=== PATIENT | female | born 1945 ===

== ENCOUNTER 2018-08-08 09:36 | Emergency (ER) | payer MEDICARE ==
[2018-08-08 09:45] VITALS: BMI 29.2
[2018-08-08] MEDS ORDERED: Sodium Chloride 0.9% 1,000 ML IV STA ×2 (11:06→11:07)
[2018-08-08 12:05] LABS: BASO # 0.1 K/uL (0.0-0.2); BASO % 0.7 % (0.0-2.0); EOS # 0.1 K/uL (0.0-0.7); EOS % 1.5 % (0.0-4.0); HEMOGLOBIN 13.5 g/dL (12.0-16.0); LYMPH # 1.6 K/uL (1.0-4.3); LYMPH % 23.5 % (20.0-40.0); MEAN CELL VOLUME 89.4 fl (81.0-99.0); MEAN CORPUSCULAR HEMOGLOBIN 29.4 pg (27.0-31.0); MEAN CORPUSCULAR HGB CONC 32.9 g/dL (33.0-37.0); MEAN PLATELET VOLUME 8.7 fl (7.2-11.7); MONO # 0.5 K/uL (0.0-0.8); MONO % 6.8 % (0.0-10.0); NEUT # 4.7 K/uL (1.8-7.0); NEUT % 67.5 % (50.0-75.0); NRBC % 0.1 % (0.0-0.0); RBC 4.58 Mil/uL (3.80-5.20); RED CELL DISTRIBUTION WIDTH 14.1 % (11.5-14.5); WHITE BLOOD COUNT 6.9 K/uL (4.8-10.8)
[2018-08-08 12:08] LABS: BLOOD UREA NITROGEN 15 mg/dl (7-17); CALCIUM 9.5 mg/dL (8.4-10.2); GFR NON-AFRICAN AMERICAN > 60
--- NOTE | 2018-08-08 12:20 | ED PDOC ---
History of Present Illness History of Present Illness: Randi Hatch is a 73 year old female with a past medical history of hypertension, emphysema, CAD, and COPD who is presenting to the ED for evaluation of 4 days worsening generalized body aches, and sore throat associated with a mild headache. Patient states that she took over the counter M ucinex with no relief of symptoms. She reports a subjective fever and states that she is complaint with her medications and medical follow-ups. Patient denies any nausea or vomiting or any other medical complaints. PMD: Dr. Panchal HPI: Influenza Time Seen by Provider: 08/08/18 10:58 Chief Complaint: Flu-like Symptoms Chief Complaint (Provider): Flu-like Symptoms History Per: Patient Exam Limitations: no limitations Onset/Duration Of Symptoms: Days Symptoms include: fever, headache, bodyaches, sore throat. denies: vomiting Past Medical History Reviewed: Historical Data, Nursing Documentation, Vital Signs Vital Signs: Last Vital Signs Temp 98.7 F 08/08/18 09:44 Pulse 89 08/08/18 09:44 Resp 20 08/08/18 09:44 BP 142/77 08/08/18 09:44 Pulse Ox 96 08/08/18 09:44 - Medical History PMH: CAD, COPD, Emphysema, HTN, Hypercholesterolemia, Hypothyroidism, Pneumonia Denies: Chronic Kidney Disease - Surgical History Surgical History: Coronary Stent Denies: CABG - Family History Family History: States: Unknown Family Hx - Social History Ex-Smoker (has not smoked in the last 12 months): Yes Alcohol: None Drugs: Denies - Immunization History Hx Tetanus Toxoid Vaccination: No Hx Influenza Vaccination: Yes (2013) Hx Pneumococcal Vaccination: Yes (2012) - Home Medications Home Medications: Ambulatory Orders Medication Instructions Recorded Albuterol 0.083% [Albuterol 0.083% 2.5 mg IH Q4 #100 neb 03/08/15 Inhal Keisha (2.5 mg/3 ml) UD] Albuterol Sulfate [Proair Hfa] 200 puff IH Q4 PRN #1 inh 03/08/15 Levothyroxine [Synthroid] 75 mcg PO DAILY 01/02/16 Lisinopril [Zestril] 20 mg PO DAILY 01/02/16 Simvastatin [Zocor] 20 mg PO DAILY 01/02/16 hydroCHLOROthiazide [Hydrodiuril] 25 mg PO DAILY 01/02/16 Clopidogrel [Plavix] 75 mg PO DAILY 12/05/16 Fluticasone/Vilanterol [Breo 1 each IH DAILY 12/05/16 Ellipta 100-25 Mcg INH] - Allergies Allergies/Adverse Reactions: Allergies Allergy/AdvReac Type Severity Reaction Status Date / Time No Known Allergies Allergy Verified 01/02/16 14:47 Review of Systems ROS Statement: Except As Marked, All Systems Reviewed And Found Negative Constitutional: Positive for: Fever, Other (body aches) ENT: Positive for: Throat Pain Gastrointestinal: Negative for: Nausea, Vomiting Neurological: Positive for: Headache Physical Exam - Reviewed Nursing Documentation Reviewed: Yes Vital Signs Reviewed: Yes - Physical Exam Appears: Positive for: Well, Non-toxic, No Acute Distress Head Exam: Positive for: ATRAUMATIC, NORMAL INSPECTION, NORMOCEPHALIC Skin: Positive for: Normal Color, Warm, DRY Eye Exam: Positive for: EOMI, Normal appearance, PERRL ENT: Positive for: Pharynx Is (mildly erythematous), Other (tenderness to palpation of cervical lymph nodes) Neck: Positive for: Normal, Painless ROM, Supple Cardiovascular/Chest: Positive for: Regular Rate, Rhythm. Negative for: Murmur Respiratory: Positive for: Normal Breath Sounds, Other (decreased air entry ). Negative for: Crackles, Rales, Rhonchi, Respiratory Distress Gastrointestinal/Abdominal: Positive for: Normal Exam, Soft. Negative for: Tenderness Back: Positive for: Normal Inspection. Negative for: L CVA Tenderness, R CVA Tenderness, Vertebral Tenderness Extremity: Positive for: Normal ROM. Negative for: Deformity, Swelling Neurologic/Psych: Positive for: Alert, Oriented. Negative for: Motor/Sensory Deficits Medical Decision Making Medical Decision Making: Time: 11:03 A/P: workup for influenza v other infectious etiology --Labs, EKG, CXR, IV fluids, Tylenol --Reassess Patient - Scribe Attestation: Documented by Sherin Hastings, acting as a scribe for Violeta Weaver MD. Provider Scribe Attestation: All medical record entries made by the Scribe were at my direction and personally dictated by me. I have reviewed the chart and agree that the record accurately reflects my personal performance of the history, physical exam, medical decision making, and the department course for this patient. I have also personally directed, reviewed, and agree with the discharge instructions and disposition. 1:15pm Pt with improved symptoms with Tylenol. Influenza negative and labs WNL. CXR unremarkable. Pt advised to take Tylenol for pain and will follow up with primary medical doctor in one week. REturn parameters discussed. - Laboratory Results Result Diagrams: 08/08/18 11:48 08/08/18 11:48 - ECG O2 Sat by Pulse Oximetry: 96 Disposition - Clinical Impression Clinical Impression: Viral URI with cough - Disposition Disposition: Routine/Home Disposition Time: 13:18 Condition: IMPROVED Forms: [employer] (Macedonian)
--- NOTE | 2018-08-08 13:22 | RAD ---
Date of service: 08/08/2018 HISTORY: Cough and flu like illness COMPARISON: Comparison made with chest radiograph dated 12/06/2015.. TECHNIQUE: Chest PA and lateral FINDINGS: LUNGS: Slightly increased and coarsened interstitial markings; findings may represent sequela of a viral illness or possibly reactive/inflammatory airway disease. PLEURA: No significant pleural effusion identified. No pneumothorax apparent. CARDIOVASCULAR: Mild aortic atherosclerotic calcification present. Normal cardiac size. No pulmonary vascular congestion. OSSEOUS STRUCTURES: Chronic appearing anterior stature loss of multiple upper/midthoracic segments. Multilevel degenerative spondylosis. VISUALIZED UPPER ABDOMEN: Normal. OTHER FINDINGS: None. IMPRESSION: Slightly increased and coarsened interstitial markings; findings may represent sequela of a viral illness or possibly reactive/inflammatory airway disease.
[2018-08-08 14:15] VITALS: BP 128/78; PULSE 78; RESP 19; TEMP 97; O2SAT 98
[2018-08-08 14:39] LABS: VENOUS BLOOD GAS BASE EXCESS 9.2 mmol/L (0.0-2.0); VENOUS BLOOD GAS PCO2 55 mmHg (40-60); VENOUS BLOOD GAS PO2 29 mm/Hg (30-55); VENOUS BLOOD PH 7.42 (7.32-7.43)
--- NOTE | 2018-08-08 20:35 | CARD ---
APPROVED REPORT Date of service: 08/08/2018 EKG Measurement Heart [id number] <Conclusion> Sinus rhythm with occasional atrial-paced complexes. There are abnormal pacemaker spikes. Correlate clinically. Left axis deviation Left bundle branch block Abnormal ECG
== END 2018-08-08 14:50 | disposition home or self-care (01) ==
LOC: H.ER 09:36
DX: J06.9 Acute upper respiratory infection, unspecified (principal); R05 Cough
CPT/HCPCS: 71046; 80048; 82803; 85025; 87804; 93005; 99282; J7030

== ENCOUNTER 2018-09-09 09:02 | Emergency (ER) | payer MEDICARE ==
[2018-09-09 09:08] VITALS: BMI 27.6
[2018-09-09] MEDS ORDERED: Albuterol-Ipratrop 3 mg / 0.5 (3 ml) UD INH STA (10:02)
[2018-09-09] MEDS: Sodium Chloride 0.9% 1,000 ML IV SCH ×4 (10:09→13:01)
[2018-09-09] MEDS ORDERED: Albuterol-Ipratrop 3 mg / 0.5 (3 ml) UD ONE (10:24)
[2018-09-09 10:28] LABS: SQUAMOUS EPITHIAL 10 /hpf (0-5); URINE BACTERIA RARE (<OCC); URINE BILIRUBIN NEGATIVE (NEGATIVE); URINE BLOOD MODERATE (NEGATIVE); URINE CLARITY CLOUDY (Clear); URINE COLOR YELLOW (YELLOW); URINE GLUCOSE (UA) NEG (NEGATIVE); URINE LEUKOCYTE ESTERASE NEG Leu/uL (Negative); URINE PROTEIN 30 mg/dL (NEGATIVE)
[2018-09-09 10:30] LABS: BASO % 0.4 % (0.0-2.0); EOS # 0.1 K/uL (0.0-0.7); EOS % 1.6 % (0.0-4.0); HEMOGLOBIN 13.3 g/dL (12.0-16.0); LYMPH # 1.5 K/uL (1.0-4.3); LYMPH % 20.9 % (20.0-40.0); MEAN CELL VOLUME 88.4 fl (81.0-99.0); MEAN CORPUSCULAR HEMOGLOBIN 29.5 pg (27.0-31.0); MEAN CORPUSCULAR HGB CONC 33.3 g/dL (33.0-37.0); MEAN PLATELET VOLUME 8.8 fl (7.2-11.7); MONO # 0.4 K/uL (0.0-0.8); NEUT # 5.2 K/uL (1.8-7.0); NEUT % 71.1 % (50.0-75.0); NRBC % 0.2 % (0.0-0.0); RBC 4.5 Mil/uL (3.80-5.20); RED CELL DISTRIBUTION WIDTH 14.3 % (11.5-14.5); WHITE BLOOD COUNT 7.3 K/uL (4.8-10.8)
--- NOTE | 2018-09-09 10:30 | ED PDOC ---
History of Present Illness History of Present Illness: Pt presents to the ED complaining of flu like symptoms that include a fever (resolved on presentation), cough and feeling overall body pain; Pt has complained of these symptoms for the last week and has a history of a cardiac stent (2013), COPD but denies diabetes or any other chronic medical conditions. Pt indicates that she has received the flu shot as well as her PNA vaccine this year. HPI: Influenza Time Seen by Provider: 09/09/18 09:54 Chief Complaint: Flu-like Symptoms Chief Complaint (Provider): Flu Like Symptoms History Per: Patient Exam Limitations: no limitations Have you had recent travel within the past 21 days to any of: No Onset/Duration Of Symptoms: Days (seven) Symptoms include: fever, bodyaches, cough, nasal congestion, vomiting Sick Contacts (Context): None Hx Influenza Vaccination: Yes Risk factors for flu complications: Yes: adult > 65 years, chronic lung disease, endocrine disorders, heart disease Past Medical History Reviewed: Historical Data, Nursing Documentation Vital Signs: Last Vital Signs Temp 98.4 F 09/09/18 09:09 Pulse 91 H 09/09/18 09:09 Resp 20 09/09/18 09:09 BP 157/90 H 09/09/18 09:09 Pulse Ox 97 09/09/18 09:09 - Medical History PMH: CAD, COPD, Emphysema, HTN, Hypercholesterolemia, Hypothyroidism, Pneumonia Denies: Chronic Kidney Disease - Surgical History Surgical History: Coronary Stent Denies: CABG - Family History Family History: States: Unknown Family Hx - Living Arrangements Living Arrangements: Alone - Immunization History Hx Tetanus Toxoid Vaccination: No Hx Influenza Vaccination: Yes Hx Pneumococcal Vaccination: Yes - Home Medications Home Medications: Ambulatory Orders Medication Instructions Recorded Albuterol 0.083% [Albuterol 0.083% 2.5 mg IH Q4 #100 neb 03/08/15 Inhal Keisha (2.5 mg/3 ml) UD] Albuterol Sulfate [Proair Hfa] 200 puff IH Q4 PRN #1 inh 03/08/15 Levothyroxine [Synthroid] 75 mcg PO DAILY 01/02/16 Lisinopril [Zestril] 20 mg PO DAILY 01/02/16 Simvastatin [Zocor] 20 mg PO DAILY 01/02/16 hydroCHLOROthiazide [Hydrodiuril] 25 mg PO DAILY 01/02/16 Clopidogrel [Plavix] 75 mg PO DAILY 12/05/16 Fluticasone/Vilanterol [Breo 1 each IH DAILY 12/05/16 Ellipta 100-25 Mcg INH] Acetaminophen [Tylenol 325mg tab] 650 mg PO Q6 #100 tab 08/08/18 Benzonatate 200 mg PO TID #30 capsule 09/09/18 - Allergies Allergies/Adverse Reactions: Allergies Allergy/AdvReac Type Severity Reaction Status Date / Time No Known Allergies Allergy Verified 09/09/18 09:15 Review of Systems ROS Statement: Except As Marked, All Systems Reviewed And Found Negative Constitutional: Positive for: Fever, Chills Respiratory: Positive for: Cough Gastrointestinal: Positive for: Nausea Medical Decision Making Medical Decision Making: Fluids CXR CBC/CMP Flu Swab all negative results pt appears well after IV hydration therapy and requesting discharge - Laboratory Results Result Diagrams: 09/09/18 10:10 09/09/18 10:10 - ECG O2 Sat by Pulse Oximetry: 97 Disposition - Clinical Impression Clinical Impression: Upper respiratory infection, Viral URI with cough - Patient ED Disposition Is Patient to be Admitted: No Doctor Will See Patient In The: Office Counseled Patient/Family Regarding: Studies Performed, Diagnosis, Need For Followup - Disposition Referrals: Nicho Victor MD [Family Provider] - Disposition: Routine/Home Disposition Time: 12:58 Condition: STABLE Prescriptions: Benzonatate 200 mg PO TID #30 capsule Instructions: Viral Upper Respiratory Infection, Adult (DC) Forms: [employer] (Bolivian)
[2018-09-09 10:35] LABS: ALBUMIN 3.8 g/dL (3.5-5.0); ALT/SGPT 19 U/L (9-52); AST/SGOT 19 U/L (14-36); BLOOD UREA NITROGEN 18 mg/dl (7-17); CALCIUM 9.3 mg/dL (8.4-10.2); GFR NON-AFRICAN AMERICAN > 60
[2018-09-09 13:10] VITALS: BP 146/84; PULSE 79; RESP 16; TEMP 98.1; O2SAT 95
--- NOTE | 2018-09-09 13:10 | RAD ---
Date of service: 09/09/2018 HISTORY: r/p PNA COMPARISON: 08/08/2018 TECHNIQUE: Chest PA and lateral FINDINGS: LUNGS: No active pulmonary disease. PLEURA: No significant pleural effusion identified. No pneumothorax apparent. CARDIOVASCULAR: No aortic atherosclerotic calcification present. Normal cardiac size. No pulmonary vascular congestion. OSSEOUS STRUCTURES: No significant abnormalities. VISUALIZED UPPER ABDOMEN: Normal. OTHER FINDINGS: None. IMPRESSION: No active disease.
== END 2018-09-09 13:10 | disposition home or self-care (01) ==
LOC: H.ER 09:02
DX: J06.9 Acute upper respiratory infection, unspecified (principal); R05 Cough
CPT/HCPCS: 71046; 80053; 81003; 85025; 87804; 94640; 96360; 99284; J7030